=== PATIENT | female | born 1945 | race Two or more races ===

== ENCOUNTER 2016-09-24 23:16 | Emergency (ER) | payer SELFPAY ==
[~2016-09-24] VITALS: Ht 160 cm; Wt 72.6 kg
[2016-09-25 00:11] LABS: Albumin 3.9 g/dL (3.4-5.0); Anion Gap 11 (5-15); Aspartate Aminotransferase 82 U/L (15-37); BUN/Creatinine Ratio 16.8; Blood Urea Nitrogen 21 mg/dL (7-18); Calcium 8.2 mg/dL (8.5-10.1); Carbon Dioxide 23 mmol/L (21-32); Chloride 108 mmol/L (98-107); GFR African American 54 mL/min; GFR Non-African American 45 mL/min; Glucose 130 mg/dL (74-106); Magnesium 2.3 mg/dL (1.6-2.6); Potassium 3.7 mmol/L (3.5-5.1); Sodium 142 mmol/L (136-145)
[2016-09-25 00:16] LABS: Alkaline Phosphatase 98 U/L (45-117); Bilirubin, Total 0.3 mg/dL (0.2-1.0); Total Protein 7.8 g/dL (6.4-8.2)
[2016-09-25 00:19] LABS: Basophils # (auto) 0 uL; Basophils % (auto) 0.5 % (0.0-2.0); CONDITION Y; Eosinophils # (auto) 0.1 uL; Eosinophils % (auto) 1.8 % (0.0-7.0); Hemoglobin 12.9 g/dL (12.2-16.2); Lymphocytes # (auto) 1.5 uL; Mean Corpuscular Hemoglobin 30.7 pg (28.0-32.0); Mean Corpuscular Volume 90.4 fL (80.0-100.0); Mean Platelet Volume 10.3 fL (7.4-10.4); Monocytes # (auto) 0.3 uL; Monocytes % (auto) 4.2 % (0.0-12.0); Neutrophils # (auto) 5.6 uL; Neutrophils % (auto) 73.5 % (37.0-80.0); Platelet Count (auto) 143 10^3/uL (140-450); White Blood Cell 7.7 10^3/uL (4.4-10.8)
[2016-09-25 00:21] LABS: B-Type Natriuretic Peptide 973.38 pg/mL (0-100)
[2016-09-25 00:24] LABS: Temperature: 22.7 C (20.0-25.0)
[2016-09-25 00:52] LABS: INR 1.01 (0.9-1.15)
[2016-09-25 01:14] LABS: Urine Bilirubin Negative (Negative); Urine Blood TRACE /uL (Negative); Urine Color Yellow (Yellow); Urine Glucose Normal (Normal); Urine Ketone Negative (Negative); Urine Nitrite POSITIVE (Negative); Urine RBC 1 /hpf (0 - 4); Urine Squamous Epithelial Cell FEW /hpf (<5); Urine Urobilinogen Normal (Negative)
[2016-09-25 01:40] VITALS: BP 114/67
[2016-09-25] MEDS ORDERED: FUROSEMIDE 20 MG/2 ML VIAL IV ONE (04:00)
[2016-09-25] MEDS ORDERED: FUROSEMIDE 20 MG TAB PO ONE (04:15)
== END 2016-09-25 04:29 | disposition home or self-care (01) ==
LOC: ER 23:18
DX: I13.0 Hypertensive heart and chronic kidney disease with heart failure and stage 1 through stage 4 chronic kidney disease, or unspecified chronic kidney disease (principal); N18.9 Chronic kidney disease, unspecified; I50.9 Heart failure, unspecified; K21.9 Gastro-esophageal reflux disease without esophagitis; E78.5 Hyperlipidemia, unspecified; Z88.2 Allergy status to sulfonamides
CPT/HCPCS: 36415; 71010; 80053; 81001; 83735; 83880; 84484; 85025; 85379; 85610; 85730; 93005